=== PATIENT | female | born 1990 | race African-American/Black ===

== ENCOUNTER 2016-03-27 22:00 | Emergency (ER) | payer OTHER ==
[~2016-03-27] VITALS: Ht 160 cm; Wt 86.2 kg
[~2016-03-27 22:00] MED LIST: 12 HOUR COLD R120 M1 PO; AMOXICILLIN 50500 M1 PO; ERYTHROMYCIN E3.5 G1 OPHTHALMIC; FLEXERIL PO; MACROBID 100 M100 M1 PO; NAPROSYN500 MG PO; NOHOMEMEDICATIONS; PRENATAL COMPL1 EACH PO; TRINATE TABLET1 TAB PO; VICODIN 5-5001 EACH PO; ZOFRAN ODT4 MG PO
[2016-03-27] MEDS ORDERED: FLONASE 0.05%50 MCG NASAL (22:29)
[2016-03-27] MEDS ORDERED: TESSALON PERLE100 MG PO (22:29)
[2016-03-27 23:02] VITALS: BP 141/96
== END 2016-03-27 23:02 | disposition home or self-care (01) ==
LOC: ER 22:00
DX: J40 Bronchitis, not specified as acute or chronic (principal); J06.9 Acute upper respiratory infection, unspecified

== ENCOUNTER 2018-03-04 10:30 | Emergency (ER) | payer OTHER ==
[~2018-03-04] VITALS: Ht 160 cm; Wt 79.8 kg
[~2018-03-04 10:30] MED LIST changes: +FLAGYL500 MG PO; +FLONASE 0.05%50 MCG NASAL; +IBUPROFEN 800800 M1 PO; +TESSALON PERLE100 MG PO
[2018-03-04 10:52] LABS: URINE BILIRUBIN NEGATIVE (Negative); URINE BLOOD 3+ (Negative); URINE CLARITY CLEAR; URINE COLOR YELLOW; URINE GLUCOSE-RANDOM* NEGATIVE (Negative); URINE KETONES NEGATIVE (Negative); URINE LEUKOCYTES-REFLEX NEGATIVE (Negative); URINE NITRITE-REFLEX NEGATIVE (Negative); URINE PROTEIN (DIPSTICK) NEGATIVE (Negative)
[2018-03-04 11:21] LABS: ABSOLUTE NEUTROPHILS 5.1 thou/uL (1.4-8.2); BASOPHILS 0.7 % (0.0-2.0); EOSINOPHILS 0.7 % (0.0-3.0); HEMATOCRIT 38.1 % (37.0-47.0); HEMOGLOBIN 12.7 gm/dL (12.0-15.0); LYMPHOCYTES 20.8 % (24.0-44.0); MCH 27.3 pg (26.0-34.0); MCHC 33.3 g/dL (28.0-37.0); MCV 82.1 fL (80.0-100.0); MONOCYTES 6.4 % (1.0-8.0); PLATELET COUNT 228 thou/uL (150-400); POLYS 71.4 % (36.0-66.0); RBC 4.65 mil/uL (4.20-5.00); RDW 15.4 % (10.5-14.5); WBC 7.1 thou/uL (4.0-11.0)
[2018-03-04 11:27] LABS: CASTS None Seen /LPF (None Seen); MUCUS >6 Heavy strn/LPF (None Seen); SQUAMOUS >10 Many /LPF (0-3)
[2018-03-04 11:28] LABS: URINE RBC 3-10 Few /HPF (0-2); URINE WBC-REFLEX 0-5 Rare /HPF (0-5)
[2018-03-04 11:29] LABS: BACTERIA-REFLEX 1-9 Few /HPF (None Seen); CRYSTALS None Seen /LPF (None Seen)
[2018-03-04 11:40] LABS: CALCIUM 8.8 mg/dL (8.5-10.1); CREATININE 0.6 mg/dL (0.6-1.0); POTASSIUM 3.4 mmol/L (3.5-5.1)
[2018-03-04 11:44] LABS: ALBUMIN 3.3 g/dL (3.4-5.0); TOTAL BILIRUBIN 0.2 mg/dL (<0.1-1.0); TOTAL PROTEIN 7.3 g/dL (6.4-8.2)
[2018-03-04 13:05] VITALS: BP 136/67
[2018-03-04] MEDS ORDERED: KEFLEX500 M1 PO (13:37)
[2018-03-04] MEDS ORDERED: FLAGYL500 M1 PO (17:04)
== END 2018-03-04 13:44 | disposition home or self-care (01) ==
LOC: ER 10:30
PROVIDERS: Emergency Medicine; Physician Assistant
DX: O23.41 Unspecified infection of urinary tract in pregnancy, first trimester (principal); Z3A.00 Weeks of gestation of pregnancy not specified; O34.81 Maternal care for other abnormalities of pelvic organs, first trimester; O23.591 Infection of other part of genital tract in pregnancy, first trimester; N76.0 Acute vaginitis; B96.89 Other specified bacterial agents as the cause of diseases classified elsewhere; O26.891 Other specified pregnancy related conditions, first trimester; R10.32 Left lower quadrant pain